=== PATIENT | male | born 1990 | race Caucasian/White ===

== ENCOUNTER 2020-10-10 13:36 | Emergency (ER) | payer MEDICAID, SELFPAY ==
[2020-10-10 13:39] VITALS: BP 160/93; PULSE 86; RESP 18; TEMP 36.6; O2SAT 99; BMI 31.9
--- NOTE | 2020-10-10 14:17 | ED.VIS.GEN ---
History of Present Illness Chief Complaint: Other, Pain/Inj Informant: Patient Narrative: Male with no significant past medical history presenting with pain in his sternum. He states he noticed this about 2 months ago. He describes a lump on his sternum. He is unsure if this is changed over the last 2 months. He does not have any fever, cough, chills, shortness of breath. He has been able to eat and drink normally. Is making normal urine and stool. He does not drink alcohol. He smokes about 7 cigarettes a day. Patient does state that he feels more tired over the last 2 months. He has not called his primary care physician or had any blood work done. Not having imaging of his chest. Past Medical History - Allergies and Home Meds Allergies/Adverse Reactions: Allergies No Known Allergies Allergy (Verified 10/10/20 13:42) Primary Care Physician: ANURAG ZENDEJAS [Other] Prior records reviewed: Yes Past Medical History: None Surgical History: no surgical history Lives: Spouse/ Significant Other Smoking Status: Current every day smoker Alcohol: None Drugs: None Review of Systems General: Denies: Chills, Fever, Malaise Eyes: Denies: Visual changes - bilaterally, Diplopia ENT: Denies: Rhinorrhea, Sore throat Cardiovascular: Reports: - - Sternum pain. Denies: Palpitations, Heart racing Respiratory: Denies: Dyspnea, Cough, Sputum, Dyspnea on exertion Gastrointestinal: Denies: Abdominal pain, Nausea, Vomiting, Diarrhea, Constipation Genitourinary: Denies: Dysuria, Hematuria Musculoskeletal: Denies: Myalgias, Arthralgias Skin: Denies: Rash, Abscess Neurological: Denies: Headache, Weakness, Parasthesia Psych: Denies: Depression, Anxiety Physical Exam Vital Signs/Narrative: Vital Signs Temp Pulse Resp BP Pulse Ox 10/10/20 13:39 97.8 F 86 18 160/93 H 99 Inital Vital Signs reviewed: Yes General: Obese, No Acute Distress Head: Normocephalic, Atraumatic Eyes: Perrl. Negative for: Pale conjunctiva, Scleral icterus ENT: Moist mucous membranes, No rhinorrhea Cardiovascular: Regular rate, Regular rhythm Respiratory: No distress, CTA bilaterally, - - Mild tenderness over the sternum which is slightly prominent. There is no crepitance, cellulitic change, fluctuance. Mild tenderness to palpation over medial right 10th rib. Abdomen: Soft, Nontender, Nondistended Extremities: Nontender Skin: Normal color, No rash. Negative for: Cyanosis, Diaphoresis Neurological: Alert, Oriented x3, Cranial nerves II-XII grossly intact Psychological: Normal affect, Normal Mood Diagnostic/Tx/Re-eval Clinical Impression(s) from Imaging Studies Chest X-Ray 10/10/20 14:40 IMPRESSION: Normal x-ray examination of the chest. Electronically Signed: Andrés Reyna MD at 14:54 EDT , Service support , Sternum X-Ray 10/10/20 14:40 IMPRESSION: Presternal soft tissue swelling. Electronically Signed: Andrés Reyna MD at 14:54 EDT , Service support , - Medical Decision Making 30-year-old male presenting with painful sternum. He feels it is slightly swollen. On exam it is fairly prominent but is not particularly tender to palpation. Lungs are clear to auscultation. Patient had sternal x-ray interpreted by myself which shows maybe some soft tissue swelling. Radiology does agree. Chest x-ray shows no acute cardiopulmonary process as interpreted by myself and radiologist agree. The patient is stable to be discharged home at this time. I believe based on his vital signs and physical exam he does need further lab work or imaging. Patient will follow up with his PCP to ensure resolution. Skin: 1. Soft tissue swelling to sternum ED Disposition - Plan for ED Patient: Disposition: Home or Assisted Living Referrals: ANURAG ZENDEJAS [Other] Additional Instructions: You have some soft tissue swelling adjacent to the sternum. There are no bony abnormalities that are seen. In regards to your feeling more fatigued lately I do not believe you need emergent labs done in the emergency room however I would recommend that you follow-up with your primary care provider had these tests done. If your symptoms worsen you may return to the ED for repeat evaluation. Use Tylenol and ibuprofen in alternating doses for pain.
--- NOTE | 2020-10-10 14:40 | RAD_ITS ---
STUDY: X-RAY STERNUM REASON FOR EXAM: Male, 30 years old. Sternum pain TECHNIQUE: 3 view(s) of the sternum were obtained. COMPARISON: None. FINDINGS: Normal bilateral sternoclavicular articulations. Normal manubrium. Normal sternomanubrial joint. Normal sternal body and xiphoid process. There is no demonstrated fracture of the sternum. Normal visualized anterior ribs. Normal visualized lungs. Presternal soft tissue swelling. RAD/Sternum min 2 Views IMPRESSION: Presternal soft tissue swelling. Electronically Signed: Andrés Reyna MD at 14:54 EDT , Service support ,
--- NOTE | 2020-10-10 14:40 | RAD_ITS ---
STUDY: X-RAY CHEST REASON FOR EXAM: Male, 30 years old. Right rib pain TECHNIQUE: PA and lateral views of the chest. COMPARISON: None. FINDINGS: The lungs are clear and expanded. There is no demonstrated pleural abnormality. Normal size heart. Normal mediastinum and serena. Normal visualized pulmonary arteries. Normal visualized aortic arch and descending thoracic aorta. Normal visualized thoracic spine. Normal visualized ribs, clavicles, and shoulders. There is no demonstrated abnormality of the visualized soft tissue structures of the upper abdomen. RAD/Chest PA and Lateral IMPRESSION: Normal x-ray examination of the chest. Electronically Signed: Andrés Reyna MD at 14:54 EDT , Service support ,
== END 2020-10-10 15:16 | disposition home or self-care (01) ==
PROVIDERS: Emergency Provider Student in an Organized Health Care Education/Training Program
DX: R22.2 Localized swelling, mass and lump, trunk (principal); R07.81 Pleurodynia; F17.210 Nicotine dependence, cigarettes, uncomplicated
CPT/HCPCS: 71046; 71120; 99282

== ENCOUNTER → 2023-12-08 | Outpatient (CLI) | payer OTHER, SELFPAY ==
[2023-12-08 17:56] LABS: Hematocrit 42.4 % (40-54); Hemoglobin 14.9 g/dL (13.0-16.5); Mean Corp Hgb Conc 35.1 g/dL (32-36); Mean Corpuscular Hgb 30.6 pg (27.0-32.0); Mean Corpuscular Volume 87.1 fL (80-94); Mean Platelet Vol. 10.1 fl (6.2-12.0); Platelet Count 210 K/mm3 (150-450); RBC Distribution Width CV 12.2 % (11.6-14.6); RBC Distribution Width SD 38.4 fl (35.1-43.9); Red Blood Count 4.87 M/mm3 (4.6-6.2); White Blood Count 11.8 K/mm3 (4.4-11.0)
[2023-12-08 18:10] LABS: Erythrocyte Sedimentation Rate 2 mm/hr (0-20)
[2023-12-08 18:35] LABS: ALB/GLOB Ratio 1.3 RATIO (0.9-2.4); AST(SGOT) 16 U/L (15-37); Alanine Aminotransfer ALT/SGPT 42 U/L (16-61); Albumin, Serum 4.5 g/dL (3.2-5.0); Alkaline Phosphatase 44 U/L (45-117); Anion Gap 7 (5-15); BUN 16 mg/dL (7-18); BUN/Creat Ratio 18.5 RATIO (10-20); CRP < 2.90 mg/L (0.0-3.0); Calcium,Total 9.8 mg/dL (8.5-10.1); Chloride 106 mmol/L (98-107); Creatinine, Serum 0.86 mg/dL (0.70-1.30); EST Glomerular Filtration Rate 109 mL/min (>60); Est Glom Filt Rate - Afr Amer 132 mL/min (>60); Globulin 3.5 g/dL (2.2-4.2); Glucose 77 mg/dL (74-106); Potassium 3.8 mmol/L (3.5-5.1); Sodium Level 137 mmol/L (136-145)
== END | disposition home or self-care (01) ==
LOC: MTLAB 16:52
PROVIDERS: Referring Provider Internal Medicine Gastroenterology; Visit Provider Internal Medicine Gastroenterology
DX: K62.5 Hemorrhage of anus and rectum (principal)
CPT/HCPCS: 36415; 80053; 85027; 85652; 86140